=== PATIENT | male | born 1965 | race Caucasian/White ===

== ENCOUNTER 2019-02-19 23:01 | Emergency (ER) | payer OTHER ==
[2019-02-19 23:12] VITALS: BP 153/94; PULSE 91; TEMP 98.2; BMI 33.3
[2019-02-20] MEDS ORDERED: OXYMETAZOLINE 0.05% NASAL SOLUTION 15 ML BOTTLE NS ONE (01:23)
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
--- NOTE | 2019-02-20 01:34 | PDOC ---
Attending Attestation - Resident Resident Name: EvelynashlynChato - ED Attending Attestation I have performed the following: I have examined & evaluated the patient, The case was reviewed & discussed with the resident, I agree w/resident's findings & plan, Exceptions are as noted - HPI HPI: 02/20/19 01:29 53 M with h/o pre-DM, presenting to ED with elevated BP at urgent care today. Pt states that he took his BP at home after his nose started bleeding and found it to be 170 systolic. Pt then went to urgent care, where they found it to be persistently elevated and sent him to the ED for further evaluation. Pt denies h /o HTN. Denies TRIPP. Denies CP/SOB. In ED, pt's BP has improved without intervention. His nosebleed has also stopped spontaneously. Denies any trauma to his nose. Denies lightheadedness/ dizziness. - Physicial Exam PE: 02/20/19 01:33 "GENERAL: Awake, alert, and fully oriented, in no acute distress. HEAD: No signs of trauma EYES: PERRLA, EOMI, sclera anicteric, conjunctiva clear ENT: Auricles normal inspection, hearing grossly normal, nares patent, oropharynx clear without exudates. Moist mucosa NECK: Nontender, no stepoffs, Normal ROM, supple, no lymphadenopathy, JVD, or masses LUNGS: Breath sounds equal, clear to auscultation bilaterally. No wheezes, and no crackles HEART: Regular rate and rhythm, normal S1 and S2, no murmurs, rubs or gallops ABDOMEN: Soft, nontender, normoactive bowel sounds. No guarding, no rebound. No masses EXTREMITIES: Normal range of motion, no edema. No clubbing or cyanosis. No cords, erythema, or tenderness NEUROLOGICAL: Cranial nerves II through XII intact. 5/5 strength and sensation in all extremities, Normal speech, normal gait, normal cerebellar function SKIN: Warm, Dry, normal turgor, no rashes or lesions noted. - Medical Decision Making 02/20/19 01:33 53 M with elevated BP and nosebleed at , both now resolved. Pt with no complaints currently. - DC with PMD and ENT f/u Pt is well appearing, with normal vitals. Clinically stable for DC at this time. I discussed the physical exam findings, ancillary test results and final diagnoses with the patient. I answered all of the patient's questions. The patient was satisfied with the care received and felt comfortable with the discharge plan and treatment plan. The patient agrees to follow up with the primary care physician within 24-72 hours.
== END 2019-02-20 01:52 | disposition home or self-care (01) ==
LOC: JER 23:01
DX: R04.0 Epistaxis (principal); R03.0 Elevated blood-pressure reading, without diagnosis of hypertension; C85.90 Non-Hodgkin lymphoma, unspecified, unspecified site; R73.03 Prediabetes
CPT/HCPCS: 99282-25

== ENCOUNTER 2021-02-19 20:07 | Emergency (ER) | payer OTHER ==
[2021-02-19 20:24] VITALS: TEMP 100.5; BMI 38.4
[2021-02-19] MEDS ORDERED: ACETAMINOPHEN 325 MG TABLET (FP) PO ONE (21:07)
[2021-02-19] MEDS ORDERED: LACTATED RINGERS SOLUTION 1000 ML INFUS.BAG IV ONE (21:07)
[2021-02-19] MEDS ORDERED: ALBUTEROL SO4 2.5/IPRATROPIUM 0.5 INH SOL 3 ML VIAL.NEB. NEB ONE ×6 (21:12→22:16)
[2021-02-19] MEDS ORDERED: ACETAMINOPHEN 325 MG TABLET (FP) ONE (21:33)
[2021-02-19 21:56] LABS: BASO % 1.2 % (0-2.0); EOS % 0.7 % (0-4.5); HEMATOCRIT 46.6 % (35.4-49); HEMOGLOBIN 16.1 GM/dL (11.7-16.9); LYMPH % 14.7 % (8-40); MCH 31.1 pg (25.7-33.7); MCHC 34.6 g/dl (32.0-35.9); MEAN CELL VOLUME 89.9 fl (80-96); MEAN PLT VOLUME 8.6 fl (7.5-11.1); MONO % 5.2 % (3.8-10.2); NEUT % 78.2 % (42.8-82.8); PLATELET COUNT 499 K/MM3 (134-434); RBC 5.18 M/mm3 (4.00-5.60); RDW 14.1 % (11.9-15.9); WHITE BLOOD COUNT 19.5 K/mm3 (4.0-10.0)
[2021-02-19 21:57] LABS: VENOUS BASE EXCESS 0.9 mmol/L (-2-2); VENOUS O2 SATURATION 45.6 % (70-80); VENOUS PCO2 49.7 mmHg (38-52); VENOUS PH 7.358 (7.310-7.410)
[2021-02-19] MEDS ORDERED: CEFTRIAXONE 1 GM in DEXTROSE 5%-WATER - 100 ML IVPB ONE (22:09)
[2021-02-19] MEDS ORDERED: AZITHROMYCIN IVPB 500 MG in DEXTROSE 5%-WATER - 250 ML IVPB ONE (22:09)
[2021-02-19 22:16] VITALS: BP 147/73; PULSE 116
[2021-02-19] MEDS ORDERED: CEFTRIAXONE 1 GM/50 ML BAG ONE (22:24)
[2021-02-19 22:26] LABS: CHLORIDE 103 mmol/L (98-107)
[2021-02-19 22:28] LABS: CALCIUM 9.3 mg/dL (8.5-10.1)
[2021-02-19 22:29] LABS: ALBUMIN 3.9 g/dl (3.4-5.0); BLOOD UREA NITROGEN 10.8 mg/dL (7-18); CO2 30 mmol/L (21-32); GLUCOSE,RANDOM 96 mg/dL (74-106)
[2021-02-19 22:32] LABS: SGOT/AST 15 U/L (15-37); SGPT/ALT 19 U/L (13-61)
[2021-02-19 22:34] LABS: BILIRUBIN,TOTAL 0.4 mg/dL (0.2-1)
[2021-02-19 22:35] LABS: ALK PHOS 54 U/L (45-117)
[2021-02-19 22:36] LABS: ANISOCYTOSIS 1+; MACROCYTOSIS 0; PLATELET ESTIMATE NORMAL; TEAR DROP CELLS 1+
[2021-02-19] MEDS ORDERED: AZITHROMYCIN IVPB 500 MG/250 ML BAG IVPB ONE (22:57)
[2021-02-19 23:00] LABS: ANION GAP 7 MMOL/L (8-16); SODIUM 140 mmol/L (136-145)
== END 2021-02-20 01:05 | disposition left against medical advice (07) ==
LOC: JER 20:07
PROC: 3E03329 Introduction of Other Anti-infective into Peripheral Vein, Percutaneous Approach (ICD-10-PCS; principal; 2021-02-19)
PROC: 3E0F7GC Introduction of Other Therapeutic Substance into Respiratory Tract, Via Natural or Artificial Opening (ICD-10-PCS; 2021-02-19)
DX: J98.01 Acute bronchospasm (principal); R06.02 Shortness of breath; I10 Essential (primary) hypertension; R50.9 Fever, unspecified; D72.829 Elevated white blood cell count, unspecified
CPT/HCPCS: 36415; 71275-TC; 80053; 82550; 82553; 82803; 83880; 84484; 85025; 87040; 87804; 93005; 93010; 99284-25; C9803; Q9967; U0003; U0005